=== PATIENT | female | born 1965 | race Caucasian/White ===

== ENCOUNTER → 2016-10-15 | Day surgery (SDC) | payer OTHER ==
[~2016-10-15] MED LIST: ASPIRIN325 MG PO; COZAAR100 MG PO; DILTIAZEM240 M1 PO; L-LYSINE500 M1 PO; LASIX40 MG PO; LOSARTAN POTASS25 M1 PO; MASON NATURAL1200 MG PO; NORCO 5-325 TA1 EACH PO; NORVASC10 MG PO; SPIRONOLACTONE25 MG PO; VICODIN 5/500 505 MG PO; VITAMIN D1000 IU PO; ZOFRAN ODT4 MG SL
[2016-10-15 12:50] VITALS: BP 145/84
[2016-10-15 14:10] VITALS: BP 160/90
[2016-10-15 14:22] VITALS: BP 152/73
== END | disposition home or self-care (01) ==
LOC: SDC 10-13 11:00
DX: L72.11 Pilar cyst (principal); I10 Essential (primary) hypertension; I25.2 Old myocardial infarction; Z90.49 Acquired absence of other specified parts of digestive tract; Z90.710 Acquired absence of both cervix and uterus; Z98.890 Other specified postprocedural states; Z87.891 Personal history of nicotine dependence; Z88.0 Allergy status to penicillin; Z82.49 Family history of ischemic heart disease and other diseases of the circulatory system

== ENCOUNTER → 2018-02-05 | Outpatient (CLI) | payer OTHER ==
[2018-02-05 09:04] LABS: BASO # 0.1 10*3/uL (0.0-0.1); EOS # 0.4 10*3/uL (0.0-0.4); EOS % 4.5 % (1.0-4.0); HEMATOCRIT 40.7 % (37.0-47.0); HEMOGLOBIN 13.5 g/dl (12.0-16.0); LYMPH # 2.3 10*3/uL (1.3-4.4); LYMPH % 28.1 % (27.0-41.0); MEAN CELL VOLUME 92.1 fl (81.0-99.0); MEAN CORPUSCULAR HGB 30.5 pg (27.0-31.0); MEAN CORPUSCULAR HGB CONC 33.2 g/dl (33.0-37.0); MEAN PLATELET VOLUME 9.1 fl (9.6-12.3); MONO # 0.5 10*3/uL (0.1-1.0); MONO % 6.1 % (3.0-9.0); NEUT # 4.9 10*3/uL (2.3-7.9); NEUT % 59.5 % (47.0-73.0); PLATELET COUNT AUTOMATED 239 10*3/uL (130-400); RED BLOOD COUNT 4.42 10*6/uL (4.10-5.10); RED CELL DISTRI WIDTH 12.9 % (0-14.5); WHITE BLOOD COUNT 8.3 10*3/uL (4.8-10.8)
[2018-02-05 09:21] LABS: ALBUMIN 3.4 gm/dl (3.1-4.5); ALKALINE PHOSPHATASE 74 U/L (45-117); BUN 11 mg/dl (7-24); CHLORIDE 109 mmol/L (98-107); CHOLESTEROL 148 mg/dL (<200); CREATININE 0.63 mg/dL (0.55-1.02); FREE T4 1.09 ng/dl (0.76-1.46); HDL CHOLESTEROL 31 mg/dl (40-60); LDL CHOLESTEROL 96 mg/dL (9-159); SGOT/AST 22 IU/L (3-35); SGPT/ALT 49 U/L (12-78); SODIUM 141 mmol/L (136-145); TOTAL PROTEIN 7.7 gm/dL (6.4-8.2); TRIGLYCERIDES 103 mg/dl (<150); VLDL CHOLESTEROL 21 mg/dL (6-40)
[2018-02-05 09:49] LABS: VITAMIN D, 25-HYDROXY 30.5 ng/mL (30-100)
[2018-02-06 04:05] LABS: CREATININE,URINE 72.6 mg/dL (Not Estab.); MICRO ALBUMIN/CRE RATIO <4.1 (0.0-30.0)
== END | disposition home or self-care (01) ==
LOC: LAB 08:11
PROVIDERS: Internal Medicine
DX: I10 Essential (primary) hypertension (principal); W57.XXXA Bitten or stung by nonvenomous insect and other nonvenomous arthropods, initial encounter

== ENCOUNTER → 2021-04-01 | Outpatient (CLI) | payer OTHER | END | disposition home or self-care (01) | LOC: RAD 10:04 | PROVIDERS: ATTEND Nurse Practitioner Family | DX: R05.9 Cough, unspecified (principal); M54.9 Dorsalgia, unspecified; R09.81 Nasal congestion; R11.0 Nausea; R30.0 Dysuria ==